=== PATIENT | male | born 2000 | race Caucasian/White ===

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

== ENCOUNTER 2022-04-10 21:41 | Emergency (ER) | payer OTHER ==
[~2022-04-10] VITALS: Ht 172.7 cm; Wt 68.2 kg
[2022-04-10 22:21] LABS: GLUCOSE,POINT OF CARE 137 MG/DL (70-110)
[2022-04-10] MEDS ORDERED: PERTUSS(ACELL),DIPH,TET VAC/PF 0.5 ML SYRINGE IM. ONE (22:45)
[2022-04-10] MEDS ORDERED: BACITRACIN 0.9 GM PACKET OINTMENT TP ONE (23:26)
[2022-04-11 01:15] VITALS: BP 132/69
== END 2022-04-11 01:30 | disposition home or self-care (01) ==
LOC: EMS 21:48
DX: R55 Syncope and collapse (principal)
CPT/HCPCS: 82962; 90471; 90715; 99283